=== PATIENT | female | born 1935 | race Caucasian/White ===

== ENCOUNTER 2018-01-17 20:02 | Inpatient (IN) | payer MEDICARE ==
[2018-01-17] MEDS ORDERED: oxyCODONE 5 MG Tab PO PRN (20:10)
[2018-01-17] MEDS ORDERED: Sodium Chloride 0.9% 10 ML Syringe FLUSH PRN (20:10)
[2018-01-17] MEDS ORDERED: Albuterol/Ipratropium 3.0-0.5 MG/3 ML Neb Soln NEB PRN (20:10)
[2018-01-17] MEDS ORDERED: Morphine 4 MG/ML Syringe IVPUSH PRN (20:10)
[2018-01-17] MEDS ORDERED: Ondansetron 4 MG/2 ML SDV IVPUSH PRN (20:10)
[2018-01-17] MEDS ORDERED: Sodium Chloride 0.9% 2.5 ML Syringe FLUSH PRN (20:10)
[2018-01-17 21:07] LABS: CHLORIDE,CL 79 mmol/L (98-107)
[2018-01-17 21:19] LABS: SODIUM,NA 114 mmol/L (136-145)
[2018-01-17] MEDS ORDERED: Potassium Chloride 20 MEQ Tab.ER PO SCH (21:30)
[2018-01-17] MEDS ORDERED: Potassium Chloride 10% 20 MEQ/15 ML Soln 30 ML UD Cup ONE (22:10)
--- NOTE | 2018-01-17 22:13 | PCM.HP ---
H&P History of Present Illness - General Date of Service: 01/17/18 Admit Problem/Dx: Admission Diagnosis/Problem Admission Diagnosis/Problem generalized weakness , hyponatriemia Source of Information: Family - History of Present Illness Initial Comments - Free Text/Narative: Patient is 82 y old female who presented to hospital due to generalized weakness and occasional confusion for the past week , history as per my discussion with her granddaughter. At the moment I have seen the patient she was hard of hearing and very weak and could not provide detailed history. As per granddaughter she had only one episode of diarrhea and vomiting and this was in ER at [facility] . She took her grandmother to hospital due to general weakness/ lethargy and at [facility] she was found to have sodium level of 114 mg/dl.Was seen in the hospital in [place] for a episode of eye problems and was given treated with prednisone 50 mg po daily and suppopsed to have temporal artery biopsy to rule out temporal arteritis . She has decreased vision and is almost blind . Onset of Symptoms: Reports: Gradual Duration of Symptoms: Reports: Week(s): Left Arm Pain Score (Numeric/FACES): 3 - Related Data Allergies/Adverse Reactions: Allergies Allergy/AdvReac Type Severity Reaction Status Date / Time acetaminophen Allergy Mild Itching Verified 01/17/18 21:06 methimazole [From Tapazole] Allergy Mild Swollen Verified 01/17/18 21:15 Eyes Home Medications: Home Meds Escitalopram [Lexapro] 10 mg PO DAILY 01/18/18 [History] Hydrochlorothiazide 25 mg PO DAILY 01/18/18 [History] predniSONE [Prednisone] 50 mg PO DAILY 01/18/18 [History] Social & Family History - Tobacco Use Smoking Status *Q: Current Every Day Smoker Years of Tobacco use: 50 Packs/Tins Daily: 0 Used Tobacco, but Quit: No Second Hand Smoke Exposure: No - Caffeine Use Caffeine Use: Reports: Coffee - Recreational Drug Use Recreational Drug Use: No H&P Review of Systems - Review of Systems: Review Of Systems: See Below General: Reports: Weakness, Fatigue HEENT: Reports: No Symptoms Pulmonary: Reports: No Symptoms Cardiovascular: Reports: No Symptoms Gastrointestinal: Reports: Diarrhea, Vomiting Genitourinary: Reports: No Symptoms Musculoskeletal: Reports: No Symptoms Skin: Reports: No Symptoms Neurological: Reports: Confusion Hematologic/Lymphatic: Reports: No Symptoms Immunologic: Reports: No Symptoms Exam - Exam Exam: See Below - Vital Signs Vital Signs: Last Vital Signs Temp Pulse Resp BP Pulse Ox 98 01/17/18 20:47 Weight: 108 lb 3.951 oz - Exam General: Alert, Oriented HEENT: Conjunctiva Clear, EACs Clear, EOMI Neck: Supple, Trachea Midline Lungs: Clear to Auscultation, Normal Respiratory Effort Cardiovascular: Regular Rate, Regular Rhythm, Normal S1, Normal S2 GI/Abdominal Exam: Normal Bowel Sounds, Soft, Non-Tender, No Organomegaly Extremities: Normal Inspection Skin: Warm, Dry Neurological: Cranial Nerves Intact Neuro Extensive - Mental Status: Alert, Oriented x3 - Patient Data Lab Results Last 24 hrs: Laboratory Results - last 24 hr 01/17/18 01/17/18 01/17/18 Range/Units 20:30 20:30 21:00 WBC 19.05 H (4.0-11.0) K/uL RBC 4.79 (4.30-5.90) M/uL Hgb 13.2 (12.0-16.0) g/dL Hct 36.5 (36.0-46.0) % MCV 76.2 L (80.0-98.0) fL MCH 27.6 (27.0-32.0) pg MCHC 36.2 (31.0-37.0) g/dL RDW Std Deviation 38.8 (28.0-62.0) fl RDW Coeff of Rhianna 14 (11.0-15.0) % Plt Count 412 H (150-400) K/uL MPV 10.40 (7.40-12.00) fL Nucleated RBC % 0.0 /100WBC Nucleated RBCs # 0 K/uL Sodium 114 L* (136-145) mmol/L Potassium 2.8 L (3.5-5.1) mmol/L Chloride 79 L (98-107) mmol/L Carbon Dioxide 30.0 (21.0-32.0) mmol/L BUN 16 (7.0-18.0) mg/dL Creatinine 0.7 (0.6-1.0) mg/dL Est Cr Clr Drug Dosing 47.56 mL/min Estimated GFR (MDRD) > 60.0 ml/min Glucose 118 H (74-106) mg/dL Calcium 8.3 L (8.5-10.1) mg/dL Magnesium 1.7 (1.5-2.0) mg/dL Total Bilirubin 0.5 (0.2-1.0) mg/dL AST 15 (15-37) IU/L ALT 14 (14-63) IU/L Alkaline Phosphatase 100 (46-116) U/L Total Protein 6.0 L (6.4-8.2) g/dL Albumin 3.2 L (3.4-5.0) g/dL Globulin 2.8 (2.0-3.5) g/dL Albumin/Globulin Ratio 1.1 L (1.3-2.8) Result Diagrams: 01/18/18 07:08 01/18/18 07:08 EKG INTERPRETATION Rhythm: NSR (pvc) - Problem List (1) Hyponatremia SNOMED Code(s): 17317463 ICD Code: E87.1 - HYPO-OSMOLALITY AND HYPONATREMIA Status: Acute Current Visit: Yes (2) Diarrhea SNOMED Code(s): 69742439 ICD Code: R19.7 - DIARRHEA, UNSPECIFIED Status: Acute Current Visit: Yes (3) Vision decreased SNOMED Code(s): 681635817 ICD Code: H54.7 - UNSPECIFIED VISUAL LOSS Status: Acute Current Visit: Yes Problem List Initiated/Reviewed/Updated: Yes Orders Last 24hrs: Active Orders 24 hr Category Date Time Status Patient Status [ADT] Routine ADT 01/17/18 20:10 Active Oxygen Therapy [RC] PRN Care 01/17/18 20:10 Active Pulse Oximetry [RC] CONTINUOUS Care 01/17/18 20:13 Active RT Aerosol Therapy [RC] ASDIRECTED Care 01/17/18 20:17 Active Up ad Lisbeth [RC] ASDIRECTED Care 01/17/18 20:10 Active VTE/DVT Education [RC] PER UNIT ROUTINE Care 01/17/18 20:10 Active Vital Signs [RC] Q1HR Care 01/17/18 20:10 Active PT Evaluation and Treatment [CONS] Routine Cons 01/17/18 20:10 Active Regular Diet [DIET] Diet 01/17/18 Breakfast Active CBC WITH AUTO DIFF [HEME] AM Lab 01/18/18 05:11 Ordered CBC WITH AUTO DIFF [HEME] AM Lab 01/19/18 05:11 Ordered CBC WITH AUTO DIFF [HEME] AM Lab 01/20/18 05:11 Ordered CBC WITH AUTO DIFF [HEME] AM Lab 01/21/18 05:11 Ordered CBC WITH AUTO DIFF [HEME] AM Lab 01/22/18 05:11 Ordered CDIFF TOX A+B [OP] Routine Lab 01/17/18 20:17 Ordered COMPREHENSIVE METABOLIC PN,CMP [CHEM] AM Lab 01/18/18 05:11 Ordered COMPREHENSIVE METABOLIC PN,CMP [CHEM] AM Lab 01/19/18 05:11 Ordered COMPREHENSIVE METABOLIC PN,CMP [CHEM] AM Lab 01/20/18 05:11 Ordered COMPREHENSIVE METABOLIC PN,CMP [CHEM] AM Lab 01/21/18 05:11 Ordered COMPREHENSIVE METABOLIC PN,CMP [CHEM] AM Lab 01/22/18 05:11 Ordered CULTURE BLOOD [BC] Stat Lab 01/17/18 20:30 Received CULTURE BLOOD [BC] Stat Lab 01/17/18 20:40 Received CULTURE STOOL + CAMPY+SHIGATOX [RM] Routine Lab 01/17/18 20:17 Ordered MAGNESIUM [CHEM] AM Lab 01/18/18 05:11 Ordered MAGNESIUM [CHEM] AM Lab 01/19/18 05:11 Ordered MAGNESIUM [CHEM] AM Lab 01/20/18 05:11 Ordered WBC, STOOL [OP] Routine Lab 01/17/18 20:17 Ordered Albuterol/Ipratropium [DuoNeb 3.0-0.5 MG/3 ML] Med 01/17/18 20:10 Active 3 ml NEB Q4HRRT PRN Enoxaparin [Lovenox] Med 01/17/18 20:15 Active 40 mg SUBCUT Q24H Morphine Med 01/17/18 20:10 Active 2 mg IVPUSH Q2H PRN Ondansetron [Zofran] Med 01/17/18 20:10 Active 4 mg IVPUSH Q4H PRN Potassium Chloride [Klor-Con M20] Med 01/17/18 21:30 Active 40 meq PO DAILY Potassium Chloride [Klor-Con M20] Med 01/18/18 02:00 Once 40 meq PO ONETIME ONE Sodium Chloride 0.9% [Saline Flush] Med 01/17/18 20:10 Active 10 ml FLUSH ASDIRECTED PRN Sodium Chloride 0.9% [Saline Flush] Med 01/17/18 20:10 Active 2.5 ml FLUSH ASDIRECTED PRN oxyCODONE Med 01/17/18 20:10 Active 5 mg PO Q4H PRN Blood Culture x2 Reflex Set [OM.PC] Stat Oth 01/17/18 20:10 Ordered Peripheral IV Insertion Adult [OM.PC] Routine Oth 01/17/18 20:10 Ordered Saline Lock Insert [OM.PC] Routine Oth 01/17/18 20:10 Ordered Resuscitation Status Routine Resus Stat 01/17/18 20:10 Ordered Medication Orders Albuterol/Ipratropium (Duoneb 3.0-0.5 Mg/3 Ml) 3 ml NEB Q4HRRT PRN PRN Reason: Shortness Of Breath/wheezing Enoxaparin Sodium (Lovenox) 40 mg SUBCUT Q24H CORNELIO Morphine Sulfate (Morphine) 2 mg IVPUSH Q2H PRN PRN Reason: Pain (severe 7-10) Stop: 01/18/18 20:14 Ondansetron HCl (Zofran) 4 mg IVPUSH Q4H PRN PRN Reason: Nausea Oxycodone HCl (Oxycodone) 5 mg PO Q4H PRN PRN Reason: Pain (moderate 4-6) Potassium Chloride (Klor-Con M20) 40 meq PO DAILY CORNELIO Potassium Chloride (Klor-Con M20) 40 meq PO ONETIME ONE Stop: 01/18/18 02:01 Sodium Chloride (Saline Flush) 10 ml FLUSH ASDIRECTED PRN PRN Reason: Keep Vein Open Sodium Chloride (Saline Flush) 2.5 ml FLUSH ASDIRECTED PRN PRN Reason: Keep Vein Open Cxr - unable to retrive CXR , questinable pneumonia- will repeat CXR Assessment and plan 1) severe Hyponatriemia with lethargy , occasional confusion 2)diarrhea 3) leucocytosis 4)vomiting 5) generalized weakness 6)hypokaliemia at 2.8 Plan Will admit patient to ICU will put patient on fluid restriction at 1000 cc/day , IV fluids with NS supplement K with Kcl 40 Ayala q 6 h , 3 dosages Start patient on levaquin 750 mg ivpb , metronidazole 500 mg iv qid , f/up stool culture ,DVt prof - heparin sq stool for c diff , stool for wbc, peptobismol. E icu consult. HTN: stable -continue home medications eye problems : continue prednisone 50 mg po daily Dvt prof : heparin sq
[2018-01-17] MEDS: Enoxaparin 40 MG/0.4 ML Syringe SUBCUT SCH (22:40)
[2018-01-17] MEDS ORDERED: KCL IV SCH (22:45)
[2018-01-17] MEDS ORDERED: SODIUM CHLORIDE 0.9% IV SCH (22:45)
[2018-01-17] MEDS ORDERED: cefTRIAXone 1 GM in Premix Bag 1 BAG IV SCH (23:15)
[2018-01-17] MEDS ORDERED: Azithromycin 500 MG in Sodium Chloride 0.9% 250 ML IV SCH (23:15)
[2018-01-18] MEDS ORDERED: Potassium Chloride 20 MEQ Tab.ER PO ONE (02:00)
[2018-01-18 02:35] LABS: CHLORIDE,CL 86 mmol/L (98-107)
[2018-01-18 02:39] LABS: SODIUM,NA 118 mmol/L (136-145)
[2018-01-18] MEDS ORDERED: Sodium Chloride 0.9% 1,000 ML IV SCH (03:30)
[2018-01-18 07:44] LABS: CHLORIDE,CL 88 mmol/L (98-107)
[2018-01-18 07:57] LABS: SODIUM,NA 119 mmol/L (136-145)
--- NOTE | 2018-01-18 08:13 | PCM.PN ---
<Baluch,Bob - Last Filed: 01/18/18 08:08> - General Info Date of Service: 01/18/18 Admission Dx/Problem (Free Text): Admission Diagnosis/Problem Admission Diagnosis/Problem Diarrhea Subjective Update: Patient states her only complaint is "high blood pressure." She is aware of shere she is and her surroundings. SHe denies nausea, vomiting, diarrhea, headache. 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 No other complaints. - Review of Systems General: Reports: No Symptoms HEENT: Reports: No Symptoms Pulmonary: Reports: No Symptoms Cardiovascular: Reports: No Symptoms Gastrointestinal: Reports: No Symptoms Genitourinary: Reports: No Symptoms Musculoskeletal: Reports: No Symptoms Skin: Reports: No Symptoms Neurological: Reports: No Symptoms Psychiatric: Reports: No Symptoms - Patient Data Vitals - Most Recent: Last Vital Signs Temp 36.3 C 01/18/18 04:00 Pulse Resp 12 01/18/18 07:00 BP 159/57 H 01/18/18 07:00 Pulse Ox 96 01/18/18 07:00 Weight - Most Recent: 108 lb 3.951 oz I&O - Last 24 Hours: Intake & Output 01/17/18 01/18/18 01/18/18 22:59 06:59 14:59 Intake Total 888 Output Total 1200 Balance -312 Lab Results Last 24 Hours: Laboratory Results - last 24 hr 01/17/18 01/17/18 01/17/18 Range/Units 20:30 20:30 21:00 WBC 19.05 H (4.0-11.0) K/uL RBC 4.79 (4.30-5.90) M/uL Hgb 13.2 (12.0-16.0) g/dL Hct 36.5 (36.0-46.0) % MCV 76.2 L (80.0-98.0) fL MCH 27.6 (27.0-32.0) pg MCHC 36.2 (31.0-37.0) g/dL RDW Std Deviation 38.8 (28.0-62.0) fl RDW Coeff of Rhianna 14 (11.0-15.0) % Plt Count 412 H (150-400) K/uL MPV 10.40 (7.40-12.00) fL Neut % (Auto) (48.0-80.0) % Lymph % (Auto) (16.0-40.0) % [place] % (Auto) (0.0-15.0) % Eos % (Auto) (0.0-7.0) % Baso % (Auto) (0.0-1.5) % Neut # (Auto) (1.4-5.7) K/uL Lymph # (Auto) (0.6-2.4) K/uL [place] # (Auto) (0.0-0.8) K/uL Eos # (Auto) (0.0-0.7) K/uL Baso # (Auto) (0.0-0.1) K/uL Nucleated RBC % 0.0 /100WBC Nucleated RBCs # 0 K/uL Lactate (0.20-2.00) mmol/L Sodium 114 L* (136-145) mmol/L Potassium 2.8 L (3.5-5.1) mmol/L Chloride 79 L (98-107) mmol/L Carbon Dioxide 30.0 (21.0-32.0) mmol/L BUN 16 (7.0-18.0) mg/dL Creatinine 0.7 (0.6-1.0) mg/dL Est Cr Clr Drug Dosing 47.56 mL/min Estimated GFR (MDRD) > 60.0 ml/min Glucose 118 H (74-106) mg/dL Calcium 8.3 L (8.5-10.1) mg/dL Magnesium 1.7 (1.5-2.0) mg/dL Total Bilirubin 0.5 (0.2-1.0) mg/dL AST 15 (15-37) IU/L ALT 14 (14-63) IU/L Alkaline Phosphatase 100 (46-116) U/L Total Protein 6.0 L (6.4-8.2) g/dL Albumin 3.2 L (3.4-5.0) g/dL Globulin 2.8 (2.0-3.5) g/dL Albumin/Globulin Ratio 1.1 L (1.3-2.8) Urine Color Urine Appearance Urine pH (5.0-8.0) Ur Specific [place] (1.001-1.035) Urine Protein (NEGATIVE) mg/dL Urine Glucose (UA) (NEGATIVE) mg/dL Urine Ketones (NEGATIVE) mg/dL Urine Occult Blood (NEGATIVE) Urine Nitrite (NEGATIVE) Urine Bilirubin (NEGATIVE) Urine Urobilinogen (<2.0) EU/dL Ur Leukocyte Esterase (NEGATIVE) Urine RBC (0-2/HPF) Urine WBC (0-5/HPF) Ur Epithelial Cells (NONE-FEW) Urine Bacteria (NEGATIVE) Ur Random Sodium (40.0-220.0) mmol/L 01/17/18 01/17/18 01/18/18 Range/Units 22:47 23:40 02:00 WBC (4.0-11.0) K/uL RBC (4.30-5.90) M/uL Hgb (12.0-16.0) g/dL Hct (36.0-46.0) % MCV (80.0-98.0) fL MCH (27.0-32.0) pg MCHC (31.0-37.0) g/dL RDW Std Deviation (28.0-62.0) fl RDW Coeff of Rhianna (11.0-15.0) % Plt Count (150-400) K/uL MPV (7.40-12.00) fL Neut % (Auto) (48.0-80.0) % Lymph % (Auto) (16.0-40.0) % [place] % (Auto) (0.0-15.0) % Eos % (Auto) (0.0-7.0) % Baso % (Auto) (0.0-1.5) % Neut # (Auto) (1.4-5.7) K/uL Lymph # (Auto) (0.6-2.4) K/uL [place] # (Auto) (0.0-0.8) K/uL Eos # (Auto) (0.0-0.7) K/uL Baso # (Auto) (0.0-0.1) K/uL Nucleated RBC % /100WBC Nucleated RBCs # K/uL Lactate (0.20-2.00) mmol/L Sodium 118 L* (136-145) mmol/L Potassium 4.3 (3.5-5.1) mmol/L Chloride 86 L (98-107) mmol/L Carbon Dioxide 28.0 (21.0-32.0) mmol/L BUN 12 (7.0-18.0) mg/dL Creatinine 0.6 (0.6-1.0) mg/dL Est Cr Clr Drug Dosing 55.49 mL/min Estimated GFR (MDRD) > 60.0 ml/min Glucose 92 (74-106) mg/dL Calcium 8.0 L (8.5-10.1) mg/dL Magnesium (1.5-2.0) mg/dL Total Bilirubin (0.2-1.0) mg/dL AST (15-37) IU/L ALT (14-63) IU/L Alkaline Phosphatase (46-116) U/L Total Protein (6.4-8.2) g/dL Albumin (3.4-5.0) g/dL Globulin (2.0-3.5) g/dL Albumin/Globulin Ratio (1.3-2.8) Urine Color Urine Appearance Urine pH (5.0-8.0) Ur Specific [place] (1.001-1.035) Urine Protein (NEGATIVE) mg/dL Urine Glucose (UA) (NEGATIVE) mg/dL Urine Ketones (NEGATIVE) mg/dL Urine Occult Blood (NEGATIVE) Urine Nitrite (NEGATIVE) Urine Bilirubin (NEGATIVE) Urine Urobilinogen (<2.0) EU/dL Ur Leukocyte Esterase (NEGATIVE) Urine RBC (0-2/HPF) Urine WBC (0-5/HPF) Ur Epithelial Cells (NONE-FEW) Urine Bacteria (NEGATIVE) Ur Random Sodium 62.0 (40.0-220.0) mmol/L 01/18/18 01/18/18 01/18/18 Range/Units 02:00 07:08 07:08 WBC 13.55 H (4.0-11.0) K/uL RBC 4.73 (4.30-5.90) M/uL Hgb 13.0 (12.0-16.0) g/dL Hct 36.3 (36.0-46.0) % MCV 76.7 L (80.0-98.0) fL MCH 27.5 (27.0-32.0) pg MCHC 35.8 (31.0-37.0) g/dL RDW Std Deviation 39.8 (28.0-62.0) fl RDW Coeff of Rhianna 14 (11.0-15.0) % Plt Count 393 (150-400) K/uL MPV 10.00 (7.40-12.00) fL Neut % (Auto) 78.0 (48.0-80.0) % Lymph % (Auto) 13.1 L (16.0-40.0) % [place] % (Auto) 8.5 (0.0-15.0) % Eos % (Auto) 0.3 (0.0-7.0) % Baso % (Auto) 0.1 (0.0-1.5) % Neut # (Auto) 10.6 H (1.4-5.7) K/uL Lymph # (Auto) 1.8 (0.6-2.4) K/uL [place] # (Auto) 1.2 H (0.0-0.8) K/uL Eos # (Auto) 0.0 (0.0-0.7) K/uL Baso # (Auto) 0.0 (0.0-0.1) K/uL Nucleated RBC % 0.0 /100WBC Nucleated RBCs # 0 K/uL Lactate (0.20-2.00) mmol/L Sodium 119 L* (136-145) mmol/L Potassium 4.1 (3.5-5.1) mmol/L Chloride 88 L (98-107) mmol/L Carbon Dioxide 27.6 (21.0-32.0) mmol/L BUN 11 (7.0-18.0) mg/dL Creatinine 0.6 (0.6-1.0) mg/dL Est Cr Clr Drug Dosing 55.49 mL/min Estimated GFR (MDRD) > 60.0 ml/min Glucose 89 (74-106) mg/dL Calcium 8.4 L (8.5-10.1) mg/dL Magnesium 1.9 (1.5-2.0) mg/dL Total Bilirubin 0.4 (0.2-1.0) mg/dL AST 14 L (15-37) IU/L ALT 12 L (14-63) IU/L Alkaline Phosphatase 85 (46-116) U/L Total Protein 5.5 L (6.4-8.2) g/dL Albumin 2.9 L (3.4-5.0) g/dL Globulin 2.6 (2.0-3.5) g/dL Albumin/Globulin Ratio 1.1 L (1.3-2.8) Urine Color Urine Appearance Urine pH (5.0-8.0) Ur Specific [place] (1.001-1.035) Urine Protein (NEGATIVE) mg/dL Urine Glucose (UA) (NEGATIVE) mg/dL Urine Ketones (NEGATIVE) mg/dL Urine Occult Blood (NEGATIVE) Urine Nitrite (NEGATIVE) Urine Bilirubin (NEGATIVE) Urine Urobilinogen (<2.0) EU/dL Ur Leukocyte Esterase (NEGATIVE) Urine RBC (0-2/HPF) Urine WBC (0-5/HPF) Ur Epithelial Cells (NONE-FEW) Urine Bacteria (NEGATIVE) Ur Random Sodium (40.0-220.0) mmol/L 01/18/18 01/18/18 Range/Units 07:08 Unknown WBC (4.0-11.0) K/uL RBC (4.30-5.90) M/uL Hgb (12.0-16.0) g/dL Hct (36.0-46.0) % MCV (80.0-98.0) fL MCH (27.0-32.0) pg MCHC (31.0-37.0) g/dL RDW Std Deviation (28.0-62.0) fl RDW Coeff of Rhianna (11.0-15.0) % Plt Count (150-400) K/uL MPV (7.40-12.00) fL Neut % (Auto) (48.0-80.0) % Lymph % (Auto) (16.0-40.0) % [place] % (Auto) (0.0-15.0) % Eos % (Auto) (0.0-7.0) % Baso % (Auto) (0.0-1.5) % Neut # (Auto) (1.4-5.7) K/uL Lymph # (Auto) (0.6-2.4) K/uL [place] # (Auto) (0.0-0.8) K/uL Eos # (Auto) (0.0-0.7) K/uL Baso # (Auto) (0.0-0.1) K/uL Nucleated RBC % /100WBC Nucleated RBCs # K/uL Lactate 0.8 (0.20-2.00) mmol/L Sodium (136-145) mmol/L Potassium (3.5-5.1) mmol/L Chloride (98-107) mmol/L Carbon Dioxide (21.0-32.0) mmol/L BUN (7.0-18.0) mg/dL Creatinine (0.6-1.0) mg/dL Est Cr Clr Drug Dosing mL/min Estimated GFR (MDRD) ml/min Glucose (74-106) mg/dL Calcium (8.5-10.1) mg/dL Magnesium (1.5-2.0) mg/dL Total Bilirubin (0.2-1.0) mg/dL AST (15-37) IU/L ALT (14-63) IU/L Alkaline Phosphatase (46-116) U/L Total Protein (6.4-8.2) g/dL Albumin (3.4-5.0) g/dL Globulin (2.0-3.5) g/dL Albumin/Globulin Ratio (1.3-2.8) Urine Color YELLOW Urine Appearance CLEAR Urine pH 7.5 (5.0-8.0) Ur Specific [place] 1.015 (1.001-1.035) Urine Protein NEGATIVE (NEGATIVE) mg/dL Urine Glucose (UA) NEGATIVE (NEGATIVE) mg/dL Urine Ketones NEGATIVE (NEGATIVE) mg/dL Urine Occult Blood NEGATIVE (NEGATIVE) Urine Nitrite NEGATIVE (NEGATIVE) Urine Bilirubin NEGATIVE (NEGATIVE) Urine Urobilinogen 0.2 (<2.0) EU/dL Ur Leukocyte Esterase TRACE (NEGATIVE) Urine RBC NONE SEEN (0-2/HPF) Urine WBC 0-1 (0-5/HPF) Ur Epithelial Cells RARE (NONE-FEW) Urine Bacteria RARE (NEGATIVE) Ur Random Sodium (40.0-220.0) mmol/L Juan Results Last 24 Hours: Microbiology 01/18/18 00:40 Clostridium difficile Toxin A & B - Final Stool / Feces Negative for C.Diff Toxin/AG 01/18/18 00:40 Stool for WBCs - Final Stool / Feces NEGATIVE FOR WBC'S 01/18/18 00:40 Campylobacter Antigen Assay - Final Stool / Feces NEGATIVE CAMPYLOBACTER AG 01/18/18 01:20 Stool Occult Blood (JUAN) - Final Stool / Feces NEGATIVE OCCULT BLOOD 01/17/18 23:40 Streptococcus pneumoniae Ag Screen - Final Urine No Growth 01/17/18 23:40 Legionella Antigen - Final Urine, Bladder No Growth Med Orders - Current: Current Medications Albuterol/Ipratropium (Duoneb 3.0-0.5 Mg/3 Ml) 3 ml NEB Q4HRRT PRN PRN Reason: Shortness Of Breath/wheezing Enoxaparin Sodium (Lovenox) 40 mg SUBCUT Q24H [facility] Last Admin: 01/17/18 22:40 Dose: 40 mg Potassium Chloride/Sodium Chloride (Normal Saline With 40 Meq Kcl) 250 mls @ 60 mls/hr IV ASDIRECTED [facility] Last Admin: 01/17/18 23:05 Dose: 60 mls/hr Azithromycin 500 mg/ Sodium (Chloride) 250 mls @ 250 mls/hr IV Q24H [facility] Last Admin: 01/18/18 00:35 Dose: 250 mls/hr Ceftriaxone Sodium/Dextrose 1 (gm/ Premix) 50 mls @ 100 mls/hr IV Q24H [facility] Last Admin: 01/17/18 23:56 Dose: 100 mls/hr Sodium Chloride (Normal Saline) 1,000 mls @ 50 mls/hr IV ASDIRECTED [facility] Last Admin: 01/18/18 03:54 Dose: 50 mls/hr Morphine Sulfate (Morphine) 2 mg IVPUSH Q2H PRN PRN Reason: Pain (severe 7-10) Stop: 01/18/18 20:14 Ondansetron HCl (Zofran) 4 mg IVPUSH Q4H PRN PRN Reason: Nausea Oxycodone HCl (Oxycodone) 5 mg PO Q4H PRN PRN Reason: Pain (moderate 4-6) Potassium Chloride (Klor-Con M20) 40 meq PO DAILY [facility] Last Admin: 01/17/18 22:41 Dose: Not Given Sodium Chloride (Saline Flush) 10 ml FLUSH ASDIRECTED PRN PRN Reason: Keep Vein Open Sodium Chloride (Saline Flush) 2.5 ml FLUSH ASDIRECTED PRN PRN Reason: Keep Vein Open Discontinued Medications Potassium Chloride (Klor-Con M20) 40 meq PO ONETIME ONE Stop: 01/18/18 02:01 Last Admin: 01/18/18 02:07 Dose: Not Given Potassium Chloride (Potassium Chloride) Confirm Administered Dose 40 meq .ROUTE .STK-MED ONE Stop: 01/17/18 22:11 Last Admin: 01/17/18 22:40 Dose: 40 meq - Exam General: No Acute Distress, Other (patient speech is delayed but she is other alert and oriented x3. She is blind with poor hearing. ) HEENT: No: Mucous Membr. Moist/[place] (mucus membranes dry ) Neck: Supple, No JVD Lungs: Clear to Auscultation, Normal Respiratory Effort Cardiovascular: Regular Rate, Regular Rhythm GI/Abdominal Exam: Normal Bowel Sounds, Soft, Non-Tender, No Distention Extremities: Normal Inspection, Normal Range of Motion, Non-Tender, No Pedal Edema Peripheral Pulses: 1+: Dorsalis Pedis (L), Dorsalis Pedis (R) Skin: Dry, Intact Neurological: No New Focal Deficit. No: Normal Speech (delayed ) Psy/Mental Status: Normal Affect, Normal Mood - Problem List Review Problem List Initiated/Reviewed/Updated: Yes - Plan Plan:: as per hospitalist <Tuan Ribera - Last Filed: 01/18/18 23:53> - General Info Subjective Update: Patient is feeling better today , sodium corrected to 119 in the morning. Continue to have watery diarrhea. - Patient Data Vitals - Most Recent: Last Vital Signs Temp 97.6 F 01/18/18 20:00 Pulse Resp 16 01/18/18 20:00 BP 170/67 H 01/18/18 20:00 Pulse Ox 95 01/18/18 20:00 I&O - Last 24 Hours: Intake & Output 01/18/18 01/18/18 01/19/18 14:59 22:59 06:59 Intake Total 1696 589 Output Total 1930 50 Balance -234 539 Lab Results Last 24 Hours: Laboratory Results - last 24 hr 01/17/18 01/18/18 01/18/18 Range/Units 23:40 02:00 02:00 WBC (4.0-11.0) K/uL RBC (4.30-5.90) M/uL Hgb (12.0-16.0) g/dL Hct (36.0-46.0) % MCV (80.0-98.0) fL MCH (27.0-32.0) pg MCHC (31.0-37.0) g/dL RDW Std Deviation (28.0-62.0) fl RDW Coeff of Rhianna (11.0-15.0) % Plt Count (150-400) K/uL MPV (7.40-12.00) fL Neut % (Auto) (48.0-80.0) % Lymph % (Auto) (16.0-40.0) % [place] % (Auto) (0.0-15.0) % Eos % (Auto) (0.0-7.0) % Baso % (Auto) (0.0-1.5) % Neut # (Auto) (1.4-5.7) K/uL Lymph # (Auto) (0.6-2.4) K/uL [place] # (Auto) (0.0-0.8) K/uL Eos # (Auto) (0.0-0.7) K/uL Baso # (Auto) (0.0-0.1) K/uL Nucleated RBC % /100WBC Nucleated RBCs # K/uL Lactate (0.20-2.00) mmol/L Sodium 118 L* (136-145) mmol/L Potassium 4.3 (3.5-5.1) mmol/L Chloride 86 L (98-107) mmol/L Carbon Dioxide 28.0 (21.0-32.0) mmol/L BUN 12 (7.0-18.0) mg/dL Creatinine 0.6 (0.6-1.0) mg/dL Est Cr Clr Drug Dosing 55.49 mL/min Estimated GFR (MDRD) > 60.0 ml/min Glucose 92 (74-106) mg/dL Calcium 8.0 L (8.5-10.1) mg/dL Magnesium (1.5-2.0) mg/dL Total Bilirubin (0.2-1.0) mg/dL AST (15-37) IU/L ALT (14-63) IU/L Alkaline Phosphatase (46-116) U/L Total Protein (6.4-8.2) g/dL Albumin (3.4-5.0) g/dL Globulin (2.0-3.5) g/dL Albumin/Globulin Ratio (1.3-2.8) Urine Color Urine Appearance Urine pH (5.0-8.0) Ur Specific [place] (1.001-1.035) Urine Protein (NEGATIVE) mg/dL Urine Glucose (UA) (NEGATIVE) mg/dL Urine Ketones (NEGATIVE) mg/dL Urine Occult Blood (NEGATIVE) Urine Nitrite (NEGATIVE) Urine Bilirubin (NEGATIVE) Urine Urobilinogen (<2.0) EU/dL Ur Leukocyte Esterase (NEGATIVE) Urine RBC (0-2/HPF) Urine WBC (0-5/HPF) Ur Epithelial Cells (NONE-FEW) Urine Bacteria (NEGATIVE) Ur Random Sodium 62.0 (40.0-220.0) mmol/L 01/18/18 01/18/18 01/18/18 Range/Units 07:08 07:08 07:08 WBC 13.55 H (4.0-11.0) K/uL RBC 4.73 (4.30-5.90) M/uL Hgb 13.0 (12.0-16.0) g/dL Hct 36.3 (36.0-46.0) % MCV 76.7 L (80.0-98.0) fL MCH 27.5 (27.0-32.0) pg MCHC 35.8 (31.0-37.0) g/dL RDW Std Deviation 39.8 (28.0-62.0) fl RDW Coeff of Rhianna 14 (11.0-15.0) % Plt Count 393 (150-400) K/uL MPV 10.00 (7.40-12.00) fL Neut % (Auto) 78.0 (48.0-80.0) % Lymph % (Auto) 13.1 L (16.0-40.0) % [place] % (Auto) 8.5 (0.0-15.0) % Eos % (Auto) 0.3 (0.0-7.0) % Baso % (Auto) 0.1 (0.0-1.5) % Neut # (Auto) 10.6 H (1.4-5.7) K/uL Lymph # (Auto) 1.8 (0.6-2.4) K/uL [place] # (Auto) 1.2 H (0.0-0.8) K/uL Eos # (Auto) 0.0 (0.0-0.7) K/uL Baso # (Auto) 0.0 (0.0-0.1) K/uL Nucleated RBC % 0.0 /100WBC Nucleated RBCs # 0 K/uL Lactate 0.8 (0.20-2.00) mmol/L Sodium 119 L* (136-145) mmol/L Potassium 4.1 (3.5-5.1) mmol/L Chloride 88 L (98-107) mmol/L Carbon Dioxide 27.6 (21.0-32.0) mmol/L BUN 11 (7.0-18.0) mg/dL Creatinine 0.6 (0.6-1.0) mg/dL Est Cr Clr Drug Dosing 55.49 mL/min Estimated GFR (MDRD) > 60.0 ml/min Glucose 89 (74-106) mg/dL Calcium 8.4 L (8.5-10.1) mg/dL Magnesium 1.9 (1.5-2.0) mg/dL Total Bilirubin 0.4 (0.2-1.0) mg/dL AST 14 L (15-37) IU/L ALT 12 L (14-63) IU/L Alkaline Phosphatase 85 (46-116) U/L Total Protein 5.5 L (6.4-8.2) g/dL Albumin 2.9 L (3.4-5.0) g/dL Globulin 2.6 (2.0-3.5) g/dL Albumin/Globulin Ratio 1.1 L (1.3-2.8) Urine Color Urine Appearance Urine pH (5.0-8.0) Ur Specific [place] (1.001-1.035) Urine Protein (NEGATIVE) mg/dL Urine Glucose (UA) (NEGATIVE) mg/dL Urine Ketones (NEGATIVE) mg/dL Urine Occult Blood (NEGATIVE) Urine Nitrite (NEGATIVE) Urine Bilirubin (NEGATIVE) Urine Urobilinogen (<2.0) EU/dL Ur Leukocyte Esterase (NEGATIVE) Urine RBC (0-2/HPF) Urine WBC (0-5/HPF) Ur Epithelial Cells (NONE-FEW) Urine Bacteria (NEGATIVE) Ur Random Sodium (40.0-220.0) mmol/L 01/18/18 01/18/18 01/18/18 Range/Units 14:30 20:25 Unknown WBC (4.0-11.0) K/uL RBC (4.30-5.90) M/uL Hgb (12.0-16.0) g/dL Hct (36.0-46.0) % MCV (80.0-98.0) fL MCH (27.0-32.0) pg MCHC (31.0-37.0) g/dL RDW Std Deviation (28.0-62.0) fl RDW Coeff of Rhianna (11.0-15.0) % Plt Count (150-400) K/uL MPV (7.40-12.00) fL Neut % (Auto) (48.0-80.0) % Lymph % (Auto) (16.0-40.0) % [place] % (Auto) (0.0-15.0) % Eos % (Auto) (0.0-7.0) % Baso % (Auto) (0.0-1.5) % Neut # (Auto) (1.4-5.7) K/uL Lymph # (Auto) (0.6-2.4) K/uL [place] # (Auto) (0.0-0.8) K/uL Eos # (Auto) (0.0-0.7) K/uL Baso # (Auto) (0.0-0.1) K/uL Nucleated RBC % /100WBC Nucleated RBCs # K/uL Lactate (0.20-2.00) mmol/L Sodium 122 L 124 L (136-145) mmol/L Potassium 4.5 4.1 (3.5-5.1) mmol/L Chloride 91 L 93 L (98-107) mmol/L Carbon Dioxide 29.1 30.2 (21.0-32.0) mmol/L BUN 11 9 (7.0-18.0) mg/dL Creatinine 0.7 0.6 (0.6-1.0) mg/dL Est Cr Clr Drug Dosing 47.56 55.49 mL/min Estimated GFR (MDRD) > 60.0 > 60.0 ml/min Glucose 126 H 98 (74-106) mg/dL Calcium 8.2 L 8.1 L (8.5-10.1) mg/dL Magnesium (1.5-2.0) mg/dL Total Bilirubin (0.2-1.0) mg/dL AST (15-37) IU/L ALT (14-63) IU/L Alkaline Phosphatase (46-116) U/L Total Protein (6.4-8.2) g/dL Albumin (3.4-5.0) g/dL Globulin (2.0-3.5) g/dL Albumin/Globulin Ratio (1.3-2.8) Urine Color YELLOW Urine Appearance CLEAR Urine pH 7.5 (5.0-8.0) Ur Specific [place] 1.015 (1.001-1.035) Urine Protein NEGATIVE (NEGATIVE) mg/dL Urine Glucose (UA) NEGATIVE (NEGATIVE) mg/dL Urine Ketones NEGATIVE (NEGATIVE) mg/dL Urine Occult Blood NEGATIVE (NEGATIVE) Urine Nitrite NEGATIVE (NEGATIVE) Urine Bilirubin NEGATIVE (NEGATIVE) Urine Urobilinogen 0.2 (<2.0) EU/dL Ur Leukocyte Esterase TRACE (NEGATIVE) Urine RBC NONE SEEN (0-2/HPF) Urine WBC 0-1 (0-5/HPF) Ur Epithelial Cells RARE (NONE-FEW) Urine Bacteria RARE (NEGATIVE) Ur Random Sodium (40.0-220.0) mmol/L Juan Results Last 24 Hours: Microbiology 01/17/18 20:40 Aerobic Blood Culture - Preliminary Blood - Venous - Lab Draw NO GROWTH AFTER 1 DAY Anaerobic Blood Culture - Preliminary NO GROWTH AFTER 1 DAY 01/17/18 20:30 Aerobic Blood Culture - Preliminary Blood - Venous NO GROWTH AFTER 1 DAY Anaerobic Blood Culture - Preliminary NO GROWTH AFTER 1 DAY 01/18/18 00:40 Campylobacter Antigen Assay - Final Stool / Feces NEGATIVE CAMPYLOBACTER AG - Final NEGATIVE FOR SHIGA TOXIN 1 - Final NEGATIVE FOR SHIGA TOXIN 2 01/18/18 00:40 Clostridium difficile Toxin A & B - Final Stool / Feces Negative for C.Diff Toxin/AG 01/18/18 00:40 Stool for WBCs - Final Stool / Feces NEGATIVE FOR WBC'S 01/18/18 01:20 Stool Occult Blood (JUAN) - Final Stool / Feces NEGATIVE OCCULT BLOOD 01/17/18 23:40 Streptococcus pneumoniae Ag Screen - Final Urine No Growth 01/17/18 23:40 Legionella Antigen - Final Urine, Bladder No Growth Med Orders - Current: Current Medications Albuterol/Ipratropium (Duoneb 3.0-0.5 Mg/3 Ml) 3 ml NEB Q4HRRT PRN PRN Reason: Shortness Of Breath/wheezing Bismuth Subsalicylate (Pepto Bismol) 30 ml PO Q1H PRN PRN Reason: Diarrhea Last Admin: 01/18/18 10:12 Dose: 30 ml Enoxaparin Sodium (Lovenox) 40 mg SUBCUT Q24H [facility] Last Admin: 01/18/18 21:17 Dose: 40 mg Potassium Chloride/Sodium Chloride (Normal Saline With 40 Meq Kcl) 250 mls @ 60 mls/hr IV ASDIRECTED [facility] Last Admin: 01/17/18 23:05 Dose: 60 mls/hr Sodium Chloride (Normal Saline) 1,000 mls @ 50 mls/hr IV ASDIRECTED [facility] Last Admin: 01/18/18 03:54 Dose: 50 mls/hr Metronidazole 500 mg/ Premix 100 mls @ 100 mls/hr IV QID [facility] Last Admin: 01/18/18 17:14 Dose: 100 mls/hr Sodium Chloride (Normal Saline) 1,000 mls @ 100 mls/hr IV ASDIRECTED [facility] Last Admin: 01/18/18 16:22 Dose: 100 mls/hr Levofloxacin/Dextrose 750 mg/ (Premix) 150 mls @ 100 mls/hr IV Q24H [facility] Last Admin: 01/18/18 21:18 Dose: 100 mls/hr Ondansetron HCl (Zofran) 4 mg IVPUSH Q4H PRN PRN Reason: Nausea Oxycodone HCl (Oxycodone) 5 mg PO Q4H PRN PRN Reason: Pain (moderate 4-6) Potassium Chloride (Potassium Chloride) 40 meq PO DAILY [facility] Last Admin: 01/18/18 08:32 Dose: 40 meq Prednisone (Prednisone) 50 mg PO DAILY [facility] Sodium Chloride (Saline Flush) 10 ml FLUSH ASDIRECTED PRN PRN Reason: Keep Vein Open Sodium Chloride (Saline Flush) 2.5 ml FLUSH ASDIRECTED PRN PRN Reason: Keep Vein Open Discontinued Medications Azithromycin 500 mg/ Sodium (Chloride) 250 mls @ 250 mls/hr IV Q24H [facility] Last Admin: 01/18/18 00:35 Dose: 250 mls/hr Ceftriaxone Sodium/Dextrose 1 (gm/ Premix) 50 mls @ 100 mls/hr IV Q24H [facility] Last Admin: 01/17/18 23:56 Dose: 100 mls/hr Ciprofloxacin/Dextrose 400 mg/ (Premix) 200 mls @ 200 mls/hr IV Q12H [facility] Last Admin: 01/18/18 10:14 Dose: 200 mls/hr Morphine Sulfate (Morphine) 2 mg IVPUSH Q2H PRN PRN Reason: Pain (severe 7-10) Stop: 01/18/18 20:14 Potassium Chloride (Klor-Con M20) 40 meq PO DAILY [facility] Last Admin: 01/17/18 22:41 Dose: Not Given Potassium Chloride (Klor-Con M20) 40 meq PO ONETIME ONE Stop: 01/18/18 02:01 Last Admin: 01/18/18 02:07 Dose: Not Given Potassium Chloride (Potassium Chloride) Confirm Administered Dose 40 meq .ROUTE .STK-MED ONE Stop: 01/17/18 22:11 Last Admin: 01/17/18 22:40 Dose: 40 meq - Problem List & Annotations (1) Hyponatremia SNOMED Code(s): 67899667 Code(s): E87.1 - HYPO-OSMOLALITY AND HYPONATREMIA Status: Acute Current Visit: Yes (2) Diarrhea SNOMED Code(s): 33980699 Code(s): R19.7 - DIARRHEA, UNSPECIFIED Status: Acute Current Visit: Yes (3) Vision decreased SNOMED Code(s): 178319031 Code(s): H54.7 - UNSPECIFIED VISUAL LOSS Status: Acute Current Visit: Yes - Problem List Review Problem List Initiated/Reviewed/Updated: Yes - My Orders Last 24 Hours: My Active Orders 01/18/18 URINALYSIS W/MICROSCOPIC [UA W/MICROSCOPIC] [URIN] Routine 01/18/18 00:40 CULTURE STOOL + CAMPY+SHIGATOX [RM] Routine 01/18/18 01:20 Occult Blood Diagnostic GI [OCCULT BLOOD DIAGNOSTIC] [OP] Routine 01/18/18 03:30 Sodium Chloride 0.9% [Normal Saline] 1,000 ml IV ASDIRECTED 01/18/18 09:00 Potassium Chloride 40 meq PO DAILY 01/18/18 09:50 Bismuth Subsalicylate [Pepto Bismol] 30 ml PO Q1H PRN 01/18/18 10:00 Sodium Chloride 0.9% [Normal Saline] 1,000 ml IV ASDIRECTED 01/18/18 11:48 Transfer Patient (Change bed) [ADT] Routine 01/18/18 11:49 Precautions [COMM] Routine 01/18/18 12:00 metroNIDAZOLE/Normal Saline [Flagyl 500 MG in NS 100 ML] 500 mg Premix Bag 1 bag IV QID 01/18/18 21:00 Levofloxacin/Dextrose 5%-Water [Levaquin in D5W 750 MG/150 ML] 750 mg Premix Bag 1 bag IV Q24H 01/19/18 05:11 CBC WITH AUTO DIFF [HEME] AM COMPREHENSIVE METABOLIC PN,CMP [CHEM] AM MAGNESIUM [CHEM] AM 01/19/18 09:00 predniSONE 50 mg PO DAILY 01/20/18 05:11 CBC WITH AUTO DIFF [HEME] AM COMPREHENSIVE METABOLIC PN,CMP [CHEM] AM MAGNESIUM [CHEM] AM 01/21/18 05:11 CBC WITH AUTO DIFF [HEME] AM COMPREHENSIVE METABOLIC PN,CMP [CHEM] AM 01/22/18 05:11 CBC WITH AUTO DIFF [HEME] AM COMPREHENSIVE METABOLIC PN,CMP [CHEM] AM - Plan Plan:: CXR:nad ASSESSMENT AND PLAN 1) severe Hyponatriemia with lethargy , occasional confusion- IMPROVING ON 1000 CC WATER RESTRICTITION 2)diarrhea 3) leucocytosis 4)vomiting-RESOLVED 5) generalized weakness 6)hypokaliemia -RESOLVED Plan DOWNGRADE FROM icu will put patient on fluid restriction at 1000 cc/day , IV fluids with NS Start patient on levaquin 750 mg ivpb , metronidazole 500 mg iv qid , f/up stool culture ,DVt prof - heparin sq stool for c diff , stool for wbc, peptobismol. HTN: stable -continue home medications eye problems : continue prednisone 50 mg po daily Dvt prof :LOVENOX sq)
[2018-01-18] MEDS: Potassium Chloride 10% 20 MEQ/15 ML Soln 30 ML UD Cup PO SCH (08:32)
[2018-01-18] MEDS ORDERED: Ciprofloxacin in D5W 400 MG in Premix Bag 1 BAG IV SCH ×2 (09:30)
[2018-01-18] MEDS: Bismuth Subsalicylate 262 MG/15 ML Susp 236 ML Bottle PO PRN (10:12)
[2018-01-18] MEDS: Sodium Chloride 0.9% 1,000 ML IV SCH ×2 (10:15→16:22)
[2018-01-18] MEDS: metroNIDAZOLE/Normal Saline 500 MG in Premix Bag 1 BAG IV SCH ×2 (12:16→17:14)
--- NOTE | 2018-01-18 13:09 | CR ---
EXAMINATION: Portable chest radiograph. HISTORY: Weakness. FINDINGS: The trachea is midline. The cardiomediastinal silhouette is within normal limits. No pulmonary infilt rates, effusions or pneumothorax. Mild interstitial prominence. Osseous structures appear unremarkable. IMPRESSION: No acute cardiopulmonary process.
[2018-01-18 15:04] LABS: CHLORIDE,CL 91 mmol/L (98-107); SODIUM,NA 122 mmol/L (136-145)
[2018-01-18 20:57] LABS: CHLORIDE,CL 93 mmol/L (98-107); SODIUM,NA 124 mmol/L (136-145)
[2018-01-18] MEDS ORDERED: Levofloxacin/Dextrose 5%-Water 750 MG in Premix Bag 1 BAG IV SCH (21:00)
[2018-01-18] MEDS: Enoxaparin 40 MG/0.4 ML Syringe SUBCUT SCH (21:17)
[2018-01-19] MEDS: metroNIDAZOLE/Normal Saline 500 MG in Premix Bag 1 BAG IV SCH ×4 (00:17→17:20)
[2018-01-19] MEDS: Bismuth Subsalicylate 262 MG/15 ML Susp 236 ML Bottle PO PRN ×2 (03:15→08:25)
[2018-01-19] MEDS: Sodium Chloride 0.9% 1,000 ML IV SCH ×2 (06:10→19:26)
[2018-01-19 06:55] LABS: CHLORIDE,CL 95 mmol/L (98-107); SODIUM,NA 125 mmol/L (136-145)
[2018-01-19] MEDS: predniSONE 10 MG Tab PO SCH (08:30)
[2018-01-19] MEDS: Potassium Chloride 10% 20 MEQ/15 ML Soln 30 ML UD Cup PO SCH (08:33)
[2018-01-19] MEDS ORDERED: Loperamide 2 MG Cap PO ONE (09:12)
[2018-01-19] MEDS: amLODIPine 5 MG Tab PO SCH (11:32)
--- NOTE | 2018-01-19 17:53 | PCM.PN ---
- General Info Date of Service: 01/19/18 Admission Dx/Problem (Free Text): Admission Diagnosis/Problem Admission Diagnosis/Problem generalized weakness , hyponatriemia Subjective Update: Patient feeling better today her sodium improved to 125, she still continued to have diarrhea, stool culture and stool for C. difficile , stool for wbc were negative. Patient started on today on Imodium she was given 4 mg by mouth 1 dose and her diarrhea stopped. As per my discussion with her daughter she has history of frequent diarrhe in the past. It seems that her diarrhea is not infectious as her stool is negative for wbc - Review of Systems General: Reports: Weakness HEENT: Reports: No Symptoms Pulmonary: Reports: No Symptoms Cardiovascular: Reports: No Symptoms Gastrointestinal: Reports: Diarrhea Musculoskeletal: Reports: No Symptoms Skin: Reports: No Symptoms Neurological: Reports: No Symptoms Psychiatric: Reports: No Symptoms - Patient Data Vitals - Most Recent: Last Vital Signs Temp 97.8 F 01/19/18 16:00 Pulse Resp 14 01/19/18 16:00 BP 149/62 H 01/19/18 16:00 Pulse Ox 96 01/19/18 16:00 Weight - Most Recent: 108 lb 3.951 oz I&O - Last 24 Hours: Intake & Output 01/19/18 01/19/18 01/19/18 06:59 14:59 22:59 Intake Total 1112 1650 120 Output Total 800 2050 250 Balance 312 -400 -130 Lab Results Last 24 Hours: Laboratory Results - last 24 hr 01/17/18 01/18/18 01/19/18 Range/Units 23:40 20:25 04:40 WBC 11.71 H (4.0-11.0) K/uL RBC 4.50 (4.30-5.90) M/uL Hgb 12.4 (12.0-16.0) g/dL Hct 35.5 L (36.0-46.0) % MCV 78.9 L (80.0-98.0) fL MCH 27.6 (27.0-32.0) pg MCHC 34.9 (31.0-37.0) g/dL RDW Std Deviation 41.6 (28.0-62.0) fl RDW Coeff of Rhianna 15 (11.0-15.0) % Plt Count 381 (150-400) K/uL MPV 10.90 (7.40-12.00) fL Neut % (Auto) 75.9 (48.0-80.0) % Lymph % (Auto) 14.6 L (16.0-40.0) % [place] % (Auto) 9.1 (0.0-15.0) % Eos % (Auto) 0.3 (0.0-7.0) % Baso % (Auto) 0.1 (0.0-1.5) % Neut # (Auto) 8.9 H (1.4-5.7) K/uL Lymph # (Auto) 1.7 (0.6-2.4) K/uL [place] # (Auto) 1.1 H (0.0-0.8) K/uL Eos # (Auto) 0.0 (0.0-0.7) K/uL Baso # (Auto) 0.0 (0.0-0.1) K/uL Nucleated RBC % 0.0 /100WBC Nucleated RBCs # 0 K/uL Sodium 124 L (136-145) mmol/L Potassium 4.1 (3.5-5.1) mmol/L Chloride 93 L (98-107) mmol/L Carbon Dioxide 30.2 (21.0-32.0) mmol/L BUN 9 (7.0-18.0) mg/dL Creatinine 0.6 (0.6-1.0) mg/dL Est Cr Clr Drug Dosing 55.49 mL/min Estimated GFR (MDRD) > 60.0 ml/min Glucose 98 (74-106) mg/dL Calcium 8.1 L (8.5-10.1) mg/dL Magnesium (1.5-2.0) mg/dL Total Bilirubin (0.2-1.0) mg/dL AST (15-37) IU/L ALT (14-63) IU/L Alkaline Phosphatase (46-116) U/L Total Protein (6.4-8.2) g/dL Albumin (3.4-5.0) g/dL Globulin (2.0-3.5) g/dL Albumin/Globulin Ratio (1.3-2.8) Urine Osmolality 419 (300-900) mosm/kg 01/19/18 Range/Units 04:40 WBC (4.0-11.0) K/uL RBC (4.30-5.90) M/uL Hgb (12.0-16.0) g/dL Hct (36.0-46.0) % MCV (80.0-98.0) fL MCH (27.0-32.0) pg MCHC (31.0-37.0) g/dL RDW Std Deviation (28.0-62.0) fl RDW Coeff of Rhianna (11.0-15.0) % Plt Count (150-400) K/uL MPV (7.40-12.00) fL Neut % (Auto) (48.0-80.0) % Lymph % (Auto) (16.0-40.0) % [place] % (Auto) (0.0-15.0) % Eos % (Auto) (0.0-7.0) % Baso % (Auto) (0.0-1.5) % Neut # (Auto) (1.4-5.7) K/uL Lymph # (Auto) (0.6-2.4) K/uL [place] # (Auto) (0.0-0.8) K/uL Eos # (Auto) (0.0-0.7) K/uL Baso # (Auto) (0.0-0.1) K/uL Nucleated RBC % /100WBC Nucleated RBCs # K/uL Sodium 125 L (136-145) mmol/L Potassium 4.8 (3.5-5.1) mmol/L Chloride 95 L (98-107) mmol/L Carbon Dioxide 30.4 (21.0-32.0) mmol/L BUN 7 (7.0-18.0) mg/dL Creatinine 0.6 (0.6-1.0) mg/dL Est Cr Clr Drug Dosing 55.49 mL/min Estimated GFR (MDRD) > 60.0 ml/min Glucose 86 (74-106) mg/dL Calcium 8.1 L (8.5-10.1) mg/dL Magnesium 1.7 (1.5-2.0) mg/dL Total Bilirubin 0.3 (0.2-1.0) mg/dL AST 15 (15-37) IU/L ALT 12 L (14-63) IU/L Alkaline Phosphatase 78 (46-116) U/L Total Protein 5.1 L (6.4-8.2) g/dL Albumin 2.6 L (3.4-5.0) g/dL Globulin 2.5 (2.0-3.5) g/dL Albumin/Globulin Ratio 1.0 L (1.3-2.8) Urine Osmolality (300-900) mosm/kg Juan Results Last 24 Hours: Microbiology 01/18/18 00:40 Stool Culture - Final Stool / Feces NO SALMONELLA, SHIGELLA,OR E.COLI O157 ISOLATED Campylobacter Antigen Assay - Final NEGATIVE CAMPYLOBACTER AG - Final NEGATIVE FOR SHIGA TOXIN 1 - Final NEGATIVE FOR SHIGA TOXIN 2 01/17/18 20:40 Aerobic Blood Culture - Preliminary Blood - Venous - Lab Draw NO GROWTH AFTER 1 DAY Anaerobic Blood Culture - Preliminary NO GROWTH AFTER 1 DAY 01/17/18 20:30 Aerobic Blood Culture - Preliminary Blood - Venous NO GROWTH AFTER 1 DAY Anaerobic Blood Culture - Preliminary NO GROWTH AFTER 1 DAY Med Orders - Current: Current Medications Albuterol/Ipratropium (Duoneb 3.0-0.5 Mg/3 Ml) 3 ml NEB Q4HRRT PRN PRN Reason: Shortness Of Breath/wheezing Amlodipine Besylate (Norvasc) 10 mg PO DAILY [facility] Last Admin: 01/19/18 11:32 Dose: 10 mg Bismuth Subsalicylate (Pepto Bismol) 30 ml PO Q1H PRN PRN Reason: Diarrhea Last Admin: 01/19/18 08:25 Dose: 30 ml Enoxaparin Sodium (Lovenox) 40 mg SUBCUT Q24H [facility] Last Admin: 01/18/18 21:17 Dose: 40 mg Metronidazole 500 mg/ Premix 100 mls @ 100 mls/hr IV QID [facility] Last Admin: 01/19/18 17:20 Dose: 100 mls/hr Sodium Chloride (Normal Saline) 1,000 mls @ 100 mls/hr IV ASDIRECTED [facility] Last Admin: 01/19/18 06:10 Dose: 100 mls/hr Levofloxacin/Dextrose 750 mg/ (Premix) 150 mls @ 100 mls/hr IV Q24H [facility] Last Admin: 01/18/18 21:18 Dose: 100 mls/hr Ondansetron HCl (Zofran) 4 mg IVPUSH Q4H PRN PRN Reason: Nausea Oxycodone HCl (Oxycodone) 5 mg PO Q4H PRN PRN Reason: Pain (moderate 4-6) Potassium Chloride (Potassium Chloride) 40 meq PO DAILY [facility] Last Admin: 01/19/18 08:33 Dose: 40 meq Prednisone (Prednisone) 50 mg PO DAILY [facility] Last Admin: 01/19/18 08:30 Dose: 50 mg Sodium Chloride (Saline Flush) 10 ml FLUSH ASDIRECTED PRN PRN Reason: Keep Vein Open Sodium Chloride (Saline Flush) 2.5 ml FLUSH ASDIRECTED PRN PRN Reason: Keep Vein Open Discontinued Medications Potassium Chloride/Sodium Chloride (Normal Saline With 40 Meq Kcl) 250 mls @ 60 mls/hr IV ASDIRECTED [facility] Last Admin: 01/17/18 23:05 Dose: 60 mls/hr Azithromycin 500 mg/ Sodium (Chloride) 250 mls @ 250 mls/hr IV Q24H [facility] Last Admin: 01/18/18 00:35 Dose: 250 mls/hr Ceftriaxone Sodium/Dextrose 1 (gm/ Premix) 50 mls @ 100 mls/hr IV Q24H [facility] Last Admin: 01/17/18 23:56 Dose: 100 mls/hr Sodium Chloride (Normal Saline) 1,000 mls @ 50 mls/hr IV ASDIRECTED [facility] Last Admin: 01/18/18 03:54 Dose: 50 mls/hr Ciprofloxacin/Dextrose 400 mg/ (Premix) 200 mls @ 200 mls/hr IV Q12H [facility] Last Admin: 01/18/18 10:14 Dose: 200 mls/hr Loperamide HCl (Imodium) 4 mg PO ONETIME ONE Stop: 01/19/18 09:13 Last Admin: 01/19/18 09:18 Dose: 4 mg Morphine Sulfate (Morphine) 2 mg IVPUSH Q2H PRN PRN Reason: Pain (severe 7-10) Stop: 01/18/18 20:14 Potassium Chloride (Klor-Con M20) 40 meq PO DAILY [facility] Last Admin: 01/17/18 22:41 Dose: Not Given Potassium Chloride (Klor-Con M20) 40 meq PO ONETIME ONE Stop: 01/18/18 02:01 Last Admin: 01/18/18 02:07 Dose: Not Given Potassium Chloride (Potassium Chloride) Confirm Administered Dose 40 meq .ROUTE .STK-MED ONE Stop: 01/17/18 22:11 Last Admin: 01/17/18 22:40 Dose: 40 meq - Exam General: Alert, Oriented HEENT: EOMI. No: Scleral Icterus Neck: Supple Lungs: Clear to Auscultation, Normal Respiratory Effort Cardiovascular: Regular Rate, Regular Rhythm, No Murmurs GI/Abdominal Exam: Normal Bowel Sounds, Soft, Non-Tender, No Distention Back Exam: Normal Inspection Extremities: Normal Inspection - Problem List & Annotations (1) Hyponatremia SNOMED Code(s): 86998256 Code(s): E87.1 - HYPO-OSMOLALITY AND HYPONATREMIA Status: Acute Current Visit: Yes (2) Diarrhea SNOMED Code(s): 48970844 Code(s): R19.7 - DIARRHEA, UNSPECIFIED Status: Acute Current Visit: Yes Qualifiers: Diarrhea type: functional diarrhea Qualified Code(s): K59.1 - Functional diarrhea (3) Vision decreased SNOMED Code(s): 364732050 Code(s): H54.7 - UNSPECIFIED VISUAL LOSS Status: Acute Current Visit: Yes - Problem List Review Problem List Initiated/Reviewed/Updated: Yes - My Orders Last 24 Hours: My Active Orders 01/18/18 21:00 Levofloxacin/Dextrose 5%-Water [Levaquin in D5W 750 MG/150 ML] 750 mg Premix Bag 1 bag IV Q24H 01/19/18 09:00 amLODIPine [Norvasc] 10 mg PO DAILY predniSONE 50 mg PO DAILY 01/20/18 05:11 CBC WITH AUTO DIFF [HEME] AM COMPREHENSIVE METABOLIC PN,CMP [CHEM] AM MAGNESIUM [CHEM] AM 01/21/18 05:11 CBC WITH AUTO DIFF [HEME] AM COMPREHENSIVE METABOLIC PN,CMP [CHEM] AM 01/22/18 05:11 CBC WITH AUTO DIFF [HEME] AM COMPREHENSIVE METABOLIC PN,CMP [CHEM] AM - Plan Plan:: CXR:nad ASSESSMENT AND PLAN 1) hyponatremia- improving -will start patient on sodium chloride 1 g tablets 4 times a day, water restriction to 800 mL by mouth daily 2)diarrhea- noninfectious- stool culture and stool for WBC and stool for C. difficile negative, will discontinue Levaquin and will discontinue metronidazole , stopped today after she received imodium. Imodium could not be started previously until a possible infectious cause was ruled out. 3) leucocytosis-secondary to steroid use hypertension uncontrolled - probable a component of the uncontrolled BP is the fact she was recently started on high dose of prednisone due to the presumtion she might have temporal arteritis. Patient does not complain of headache. For uncontrolled BP she was started on Amlodipine 10 mg po daily , which brought down her BP to 145 syatolic. Lisinopril 5 mg was added for better control. Will add ESR to her Blood work, 4)vomiting-RESOLVED 5) generalized weakness -improving 6)hypokaliemia -RESOLVED Plan fluid restriction at 1000 cc/day , IV fluids with NS start amlodipine 10 mg po daily , lisinopril 5 mg po daily , f/up BP eye problems : continue prednisone 50 mg po daily Dvt prof :LOVENOX sq)
[2018-01-19] MEDS: Enoxaparin 40 MG/0.4 ML Syringe SUBCUT SCH (21:01)
[2018-01-19] MEDS: Lisinopril 5 MG Tab PO SCH (21:01)
[2018-01-20] MEDS: Sodium Chloride 1 GM Tab PO SCH ×5 (00:49→23:25)
[2018-01-20] MEDS ORDERED: hydrALAZINE 25 MG Tab PO ONE (03:51)
[2018-01-20 05:51] LABS: CHLORIDE,CL 99 mmol/L (98-107); SODIUM,NA 131 mmol/L (136-145)
[2018-01-20] MEDS: amLODIPine 5 MG Tab PO SCH (08:00)
[2018-01-20] MEDS: Lisinopril 5 MG Tab PO SCH (08:00)
[2018-01-20] MEDS: Potassium Chloride 10% 20 MEQ/15 ML Soln 30 ML UD Cup PO SCH (08:01)
[2018-01-20] MEDS: predniSONE 10 MG Tab PO SCH (08:01)
[2018-01-20] MEDS ORDERED: Potassium Chloride 20 MEQ Tab.ER PO ONE (08:47)
[2018-01-20] MEDS: Loperamide 2 MG Cap PO PRN (09:23)
--- NOTE | 2018-01-20 13:58 | PCM.PN ---
- General Info Date of Service: 01/20/18 Admission Dx/Problem (Free Text): Admission Diagnosis/Problem Admission Diagnosis/Problem generalized weakness , hyponatriemia Subjective Update: Patient feeling better today , family wants her discharged back to [facility] to continue physical therapy as she is still very weak and blind. Bed not available today , discharge on hold. Sodium today is 131. Diarrhea resolved , as per nurse she gets diarrhea with oral K Had appointment with the cell tender helper at [facility] in [place] and could not go , appointment needed rescheduling Functional Status: Reports: Pain Controlled - Review of Systems General: Reports: No Symptoms HEENT: Reports: Other (eye blindness) Pulmonary: Reports: No Symptoms Cardiovascular: Reports: No Symptoms Gastrointestinal: Reports: No Symptoms Genitourinary: Reports: No Symptoms Musculoskeletal: Reports: No Symptoms Skin: Reports: No Symptoms Neurological: Reports: No Symptoms Psychiatric: Reports: No Symptoms - Patient Data Vitals - Most Recent: Last Vital Signs Temp 97.2 F 01/20/18 12:00 Pulse 66 01/20/18 12:00 Resp 14 01/20/18 12:00 BP 153/59 H 01/20/18 12:00 Pulse Ox 93 L 01/20/18 12:00 Weight - Most Recent: 109 lb 12.643 oz I&O - Last 24 Hours: Intake & Output 01/19/18 01/20/18 01/20/18 22:59 06:59 14:59 Intake Total 781 1330 1648 Output Total 250 1200 1450 Balance 531 130 198 Lab Results Last 24 Hours: Laboratory Results - last 24 hr 01/17/18 01/20/18 01/20/18 Range/Units 23:40 04:28 04:28 WBC 16.06 H (4.0-11.0) K/uL RBC 4.59 (4.30-5.90) M/uL Hgb 12.6 (12.0-16.0) g/dL Hct 36.2 (36.0-46.0) % MCV 78.9 L (80.0-98.0) fL MCH 27.5 (27.0-32.0) pg MCHC 34.8 (31.0-37.0) g/dL RDW Std Deviation 42.2 (28.0-62.0) fl RDW Coeff of Rhianna 15 (11.0-15.0) % Plt Count 394 (150-400) K/uL MPV 10.70 (7.40-12.00) fL Neut % (Auto) 78.2 (48.0-80.0) % Lymph % (Auto) 12.7 L (16.0-40.0) % [place] % (Auto) 8.6 (0.0-15.0) % Eos % (Auto) 0.4 (0.0-7.0) % Baso % (Auto) 0.1 (0.0-1.5) % Neut # (Auto) 12.6 H (1.4-5.7) K/uL Lymph # (Auto) 2.0 (0.6-2.4) K/uL [place] # (Auto) 1.4 H (0.0-0.8) K/uL Eos # (Auto) 0.1 (0.0-0.7) K/uL Baso # (Auto) 0.0 (0.0-0.1) K/uL Nucleated RBC % 0.0 /100WBC Nucleated RBCs # 0 K/uL ESR (0-29) mm/hr Sodium 131 L (136-145) mmol/L Potassium 3.5 (3.5-5.1) mmol/L Chloride 99 (98-107) mmol/L Carbon Dioxide 25.8 (21.0-32.0) mmol/L BUN 7 (7.0-18.0) mg/dL Creatinine 0.6 (0.6-1.0) mg/dL Est Cr Clr Drug Dosing 55.49 mL/min Estimated GFR (MDRD) > 60.0 ml/min Glucose 85 (74-106) mg/dL Calcium 8.0 L (8.5-10.1) mg/dL Magnesium 1.8 (1.5-2.0) mg/dL Total Bilirubin 0.3 (0.2-1.0) mg/dL AST 13 L (15-37) IU/L ALT 12 L (14-63) IU/L Alkaline Phosphatase 76 (46-116) U/L Total Protein 4.9 L (6.4-8.2) g/dL Albumin 2.6 L (3.4-5.0) g/dL Globulin 2.3 (2.0-3.5) g/dL Albumin/Globulin Ratio 1.1 L (1.3-2.8) Urine Osmolality 419 (300-900) mosm/kg 01/20/18 Range/Units 04:28 WBC (4.0-11.0) K/uL RBC (4.30-5.90) M/uL Hgb (12.0-16.0) g/dL Hct (36.0-46.0) % MCV (80.0-98.0) fL MCH (27.0-32.0) pg MCHC (31.0-37.0) g/dL RDW Std Deviation (28.0-62.0) fl RDW Coeff of Rhianna (11.0-15.0) % Plt Count (150-400) K/uL MPV (7.40-12.00) fL Neut % (Auto) (48.0-80.0) % Lymph % (Auto) (16.0-40.0) % [place] % (Auto) (0.0-15.0) % Eos % (Auto) (0.0-7.0) % Baso % (Auto) (0.0-1.5) % Neut # (Auto) (1.4-5.7) K/uL Lymph # (Auto) (0.6-2.4) K/uL [place] # (Auto) (0.0-0.8) K/uL Eos # (Auto) (0.0-0.7) K/uL Baso # (Auto) (0.0-0.1) K/uL Nucleated RBC % /100WBC Nucleated RBCs # K/uL ESR 2 (0-29) mm/hr Sodium (136-145) mmol/L Potassium (3.5-5.1) mmol/L Chloride (98-107) mmol/L Carbon Dioxide (21.0-32.0) mmol/L BUN (7.0-18.0) mg/dL Creatinine (0.6-1.0) mg/dL Est Cr Clr Drug Dosing mL/min Estimated GFR (MDRD) ml/min Glucose (74-106) mg/dL Calcium (8.5-10.1) mg/dL Magnesium (1.5-2.0) mg/dL Total Bilirubin (0.2-1.0) mg/dL AST (15-37) IU/L ALT (14-63) IU/L Alkaline Phosphatase (46-116) U/L Total Protein (6.4-8.2) g/dL Albumin (3.4-5.0) g/dL Globulin (2.0-3.5) g/dL Albumin/Globulin Ratio (1.3-2.8) Urine Osmolality (300-900) mosm/kg Juan Results Last 24 Hours: Microbiology 01/17/18 20:40 Aerobic Blood Culture - Preliminary Blood - Venous - Lab Draw NO GROWTH AFTER 2 DAYS Anaerobic Blood Culture - Preliminary NO GROWTH AFTER 2 DAYS 01/17/18 20:30 Aerobic Blood Culture - Preliminary Blood - Venous NO GROWTH AFTER 2 DAYS Anaerobic Blood Culture - Preliminary NO GROWTH AFTER 2 DAYS Med Orders - Current: Current Medications Albuterol/Ipratropium (Duoneb 3.0-0.5 Mg/3 Ml) 3 ml NEB Q4HRRT PRN PRN Reason: Shortness Of Breath/wheezing Amlodipine Besylate (Norvasc) 10 mg PO DAILY [facility] Last Admin: 01/20/18 08:00 Dose: 10 mg Bismuth Subsalicylate (Pepto Bismol) 30 ml PO Q1H PRN PRN Reason: Diarrhea Last Admin: 01/19/18 08:25 Dose: 30 ml Enoxaparin Sodium (Lovenox) 40 mg SUBCUT Q24H [facility] Last Admin: 01/19/18 21:01 Dose: 40 mg Sodium Chloride (Normal Saline) 1,000 mls @ 100 mls/hr IV ASDIRECTED [facility] Last Admin: 01/19/18 19:26 Dose: 100 mls/hr Lisinopril (Prinivil) 5 mg PO DAILY [facility] Last Admin: 01/20/18 08:00 Dose: 5 mg Loperamide HCl (Imodium) 2 mg PO Q6H PRN PRN Reason: Diarrhea Last Admin: 01/20/18 09:23 Dose: 2 mg Ondansetron HCl (Zofran) 4 mg IVPUSH Q4H PRN PRN Reason: Nausea Oxycodone HCl (Oxycodone) 5 mg PO Q4H PRN PRN Reason: Pain (moderate 4-6) Potassium Chloride (Potassium Chloride) 40 meq PO DAILY [facility] Last Admin: 01/20/18 08:01 Dose: 40 meq Prednisone (Prednisone) 50 mg PO DAILY [facility] Last Admin: 01/20/18 08:01 Dose: 50 mg Sodium Chloride (Saline Flush) 10 ml FLUSH ASDIRECTED PRN PRN Reason: Keep Vein Open Sodium Chloride (Saline Flush) 2.5 ml FLUSH ASDIRECTED PRN PRN Reason: Keep Vein Open Sodium Chloride (Sodium Chloride) 1 gm PO QID [facility] Last Admin: 01/20/18 11:55 Dose: 1 gm Discontinued Medications Hydralazine HCl (Apresoline) 25 mg PO ONETIME ONE Stop: 01/20/18 03:52 Last Admin: 01/20/18 03:56 Dose: 25 mg Potassium Chloride/Sodium Chloride (Normal Saline With 40 Meq Kcl) 250 mls @ 60 mls/hr IV ASDIRECTED [facility] Last Admin: 01/17/18 23:05 Dose: 60 mls/hr Azithromycin 500 mg/ Sodium (Chloride) 250 mls @ 250 mls/hr IV Q24H [facility] Last Admin: 01/18/18 00:35 Dose: 250 mls/hr Ceftriaxone Sodium/Dextrose 1 (gm/ Premix) 50 mls @ 100 mls/hr IV Q24H [facility] Last Admin: 01/17/18 23:56 Dose: 100 mls/hr Sodium Chloride (Normal Saline) 1,000 mls @ 50 mls/hr IV ASDIRECTED [facility] Last Admin: 01/18/18 03:54 Dose: 50 mls/hr Ciprofloxacin/Dextrose 400 mg/ (Premix) 200 mls @ 200 mls/hr IV Q12H [facility] Last Admin: 01/18/18 10:14 Dose: 200 mls/hr Metronidazole 500 mg/ Premix 100 mls @ 100 mls/hr IV QID [facility] Last Admin: 01/19/18 17:20 Dose: 100 mls/hr Levofloxacin/Dextrose 750 mg/ (Premix) 150 mls @ 100 mls/hr IV Q24H [facility] Last Admin: 01/18/18 21:18 Dose: 100 mls/hr Loperamide HCl (Imodium) 4 mg PO ONETIME ONE Stop: 01/19/18 09:13 Last Admin: 01/19/18 09:18 Dose: 4 mg Morphine Sulfate (Morphine) 2 mg IVPUSH Q2H PRN PRN Reason: Pain (severe 7-10) Stop: 01/18/18 20:14 Potassium Chloride (Klor-Con M20) 40 meq PO DAILY [facility] Last Admin: 01/17/18 22:41 Dose: Not Given Potassium Chloride (Klor-Con M20) 40 meq PO ONETIME ONE Stop: 01/18/18 02:01 Last Admin: 01/18/18 02:07 Dose: Not Given Potassium Chloride (Potassium Chloride) Confirm Administered Dose 40 meq .ROUTE .STK-MED ONE Stop: 01/17/18 22:11 Last Admin: 01/17/18 22:40 Dose: 40 meq Potassium Chloride (Klor-Con M20) 40 meq PO ONETIME ONE Stop: 01/20/18 08:48 Last Admin: 01/20/18 09:21 Dose: Not Given - Exam General: Alert, Oriented HEENT: Pupils Equal, Pupils Reactive, Other (eye blindness) Neck: Supple, Trachea Midline, No JVD, No Thyromegaly Lungs: Clear to Auscultation, Normal Respiratory Effort Cardiovascular: Regular Rate, Regular Rhythm, No Murmurs GI/Abdominal Exam: Normal Bowel Sounds, Soft, Non-Tender, No Organomegaly, No Distention, No Abnormal Bruit, No Mass Back Exam: Normal Inspection Extremities: Normal Inspection Skin: Warm, Dry, Intact Neurological: No New Focal Deficit Psy/Mental Status: Alert, Normal Affect - Problem List & Annotations (1) Hyponatremia SNOMED Code(s): 81526286 Code(s): E87.1 - HYPO-OSMOLALITY AND HYPONATREMIA Status: Acute Current Visit: Yes (2) Diarrhea SNOMED Code(s): 67368890 Code(s): R19.7 - DIARRHEA, UNSPECIFIED Status: Acute Current Visit: Yes Qualifiers: Diarrhea type: functional diarrhea Qualified Code(s): K59.1 - Functional diarrhea (3) Vision decreased SNOMED Code(s): 128939390 Code(s): H54.7 - UNSPECIFIED VISUAL LOSS Status: Acute Current Visit: Yes - Problem List Review Problem List Initiated/Reviewed/Updated: Yes - My Orders Last 24 Hours: My Active Orders 01/19/18 21:00 Lisinopril [Prinivil] 5 mg PO DAILY 01/20/18 00:00 Sodium Chloride 1 gm PO QID 01/20/18 09:11 Loperamide [Imodium] 2 mg PO Q6H PRN 01/21/18 05:11 CBC WITH AUTO DIFF [HEME] AM COMPREHENSIVE METABOLIC PN,CMP [CHEM] AM 01/22/18 05:11 CBC WITH AUTO DIFF [HEME] AM COMPREHENSIVE METABOLIC PN,CMP [CHEM] AM - Plan Plan:: CXR:nad ASSESSMENT AND PLAN 1) hyponatremia- resolved - continue sodium chloride 1 g tablets 4 times a day, water restriction to 800 mL by mouth daily 2)diarrhea- noninfectious- stool culture and stool for WBC and stool for C. difficile negative, on Imodium prn 3) leucocytosis-secondary to steroid use hypertension u/c - probable a component of the uncontrolled BP is the fact she was recently started high dose of prednisone due to the presumption she might have temporal arteritis. Patient does not complain of headache.ESR 2. Unlikely temporal arteritis. Continue amlodipine 10 mg po daily , lisinopril 5 mg po daily , f/up BP, add spironolactone 25 mg po daily ( added to help with blood potassium level, as patient has diarrhea with KCL po ) 4)vomiting-RESOLVED 5) generalized weakness -improving, PT f/up 6)hypokaliemia -RESOLVED eye problems : continue prednisone 50 mg po daily , f/up cell tender helper Dvt prof :MARLO sq)
[2018-01-20] MEDS: Sodium Chloride 0.9% 1,000 ML IV SCH (15:33)
[2018-01-20] MEDS: Enoxaparin 40 MG/0.4 ML Syringe SUBCUT SCH (21:11)
[2018-01-20] MEDS: Spironolactone 25 MG Tab PO SCH (21:11)
[2018-01-21] MEDS: Sodium Chloride 0.9% 1,000 ML IV SCH ×2 (01:29→11:35)
[2018-01-21] MEDS: Sodium Chloride 1 GM Tab PO SCH ×2 (05:24→11:10)
[2018-01-21 05:43] LABS: CHLORIDE,CL 101 mmol/L (98-107); SODIUM,NA 134 mmol/L (136-145)
[2018-01-21] MEDS: Potassium Chloride 10% 20 MEQ/15 ML Soln 30 ML UD Cup PO SCH (08:39)
[2018-01-21] MEDS: predniSONE 10 MG Tab PO SCH (08:39)
[2018-01-21] MEDS: Spironolactone 25 MG Tab PO SCH (08:40)
[2018-01-21] MEDS: Lisinopril 5 MG Tab PO SCH (08:40)
[2018-01-21] MEDS: amLODIPine 5 MG Tab PO SCH (08:40)
[2018-01-21] MEDS: Loperamide 2 MG Cap PO PRN (08:51)
[2018-01-21] MEDS ORDERED: Lisinopril 10 MG Tab PO ONE (13:13)
[2018-01-21] MEDS ORDERED: Lisinopril 10 MG Tab PO SCH (13:15)
--- NOTE | 2018-01-21 13:27 | PCM.DCSUM1 ---
Discharge Summary - Hospital Course Free Text/Narrative:: Patient 82 y old admitted in the hospital with diarrhea nausea and vomiting and hyponatriemia at 114 , was treated in ICU by e ICU attending with water restriction at 800 cc and iv NS . Patient Na slowly improved and she was downgraded from ICU. Initially she received Rocephine 1 gram and [id number] mg for possible pneumonia , but CXR done here showed no pneumonia , later was changed to levofloxacin and metronidazole which were d/c , too once we received the culture results negative She had diarrhea and leucocytosis and the stool culture and stool gram stain , blood culture , stool for WBC , stool for c diff were negative. As per her granddaughter who is taking care of her she had diarrhea on and off in the past. Recommend avoid the raw vegetables , milk products , avoid row fruits until her symptoms resolve. Eat banana , rice , toast , apple sauce. Patient was treated for diarrhea with imodium prn. Her diarrhea stopped and sodium level improved and she was ready for discharge yesterday but no swing bed available. Patient is blind , she is currently on prednisone for presumable temporal arteritis and was supposed to be scheduled for biopsy of the temporal artery as per her granddaughter.ESR done in hospital did not show inflamation , characteristic to temporal arteritis. She had appointment with remelt pan tank operator at [facility] in [place] yesterday but she couldnt go because she could not be discharged from hospital . Discuss with the Nurse in charge Gina and she will try to reschedule her appointment. For hyponatriemia patient was given f/up appointment with nephrology. Recommend f/up Na level ,f/up K level with PCP in 3 days . Her BP was not well controlled and she was started on amlodipine 10 mg po daily and lisinopril 10 mg po daily , clonidine 0.1mg po TID prn for SBP more than 160 , hold if HR less than 60. HPI Initial Comments: Patient is 82 y old female who presented to hospital due to generalized weakness and occasional confusion for the past week , history as per my discussion with her granddaughter. At the moment I have seen the patient she was hard of hearing and very weak and could not provide detailed history. As per granddaughter she had only one episode of diarrhea and vomiting and this was in ER at [facility] . She took her grandmother to hospital due to general weakness/ lethargy and at [facility] she was found to have sodium level of 114 mg/dl.Was seen in the hospital in [place] for a episode of eye problems and was given treated with prednisone 50 mg po daily and suppopsed to have temporal artery biopsy to rule out temporal arteritis . She has decreased vision and is almost blind . - Discharge Data Discharge Date: 01/21/18 Discharge Disposition: DC/Tfer to 03 Condition: Good - Discharge Diagnosis/Problem(s) (1) Hyponatremia SNOMED Code(s): 62007320 ICD Code: E87.1 - HYPO-OSMOLALITY AND HYPONATREMIA Status: Acute Current Visit: Yes (2) Diarrhea SNOMED Code(s): 36414865 ICD Code: R19.7 - DIARRHEA, UNSPECIFIED Status: Acute Current Visit: Yes Qualifiers: Diarrhea type: functional diarrhea Qualified Code(s): K59.1 - Functional diarrhea (3) Vision decreased SNOMED Code(s): 218502208 ICD Code: H54.7 - UNSPECIFIED VISUAL LOSS Status: Acute Current Visit: Yes - Patient Summary/Data Consults: Consultations 01/17/18 20:10 PT Evaluation and Treatment [CONS] Routine - Discharge Plan Prescriptions/Med Rec: amLODIPine [Norvasc] 10 mg PO DAILY #30 tablet cloNIDine [Catapres] 0.1 mg PO Q8H PRN 30 Days #90 tab PRN Reason: Hypertension Lisinopril [Prinivil] 10 mg PO DAILY #30 tab Loperamide [Imodium] 2 mg PO Q6H PRN #30 cap PRN Reason: Diarrhea oxyCODONE 5 mg PO Q4H PRN #20 tablet PRN Reason: Pain (Moderate 4-6) Potassium Chloride 40 meq PO DAILY #10 cup Sodium Chloride 1 gm PO QID #30 tablet Home Medications: Home Meds Escitalopram [Lexapro] 10 mg PO DAILY 01/18/18 [History] predniSONE [Prednisone] 50 mg PO DAILY 01/18/18 [History] Lisinopril [Prinivil] 10 mg PO DAILY #30 tab 01/21/18 [Rx] Loperamide [Imodium] 2 mg PO Q6H PRN #30 cap 01/21/18 [Rx] Potassium Chloride 40 meq PO DAILY #10 cup 01/21/18 [Rx] Sodium Chloride 1 gm PO QID #30 tablet 01/21/18 [Rx] amLODIPine [Norvasc] 10 mg PO DAILY #30 tablet 01/21/18 [Rx] cloNIDine [Catapres] 0.1 mg PO Q8H PRN 30 Days #90 tab 01/21/18 [Rx] oxyCODONE 5 mg PO Q4H PRN #20 tablet 01/21/18 [Rx] Patient Handouts: Hyponatremia, [id number], Hyponatremia Referrals: PCP,Unknown [Ordering Only Provider] - Gerry Loyola MD [Physician] - - Review of Systems General: Reports: No Symptoms HEENT: Reports: Other (eye blindness) Pulmonary: Reports: No Symptoms Cardiovascular: Reports: No Symptoms Gastrointestinal: Reports: No Symptoms Genitourinary: Reports: No Symptoms Musculoskeletal: Reports: No Symptoms Skin: Reports: No Symptoms Neurological: Reports: No Symptoms Psychiatric: Reports: No Symptoms - Patient Data Vitals - Most Recent: Last Vital Signs Temp 98.2 F 01/21/18 11:53 Pulse 68 01/21/18 11:53 Resp 16 01/21/18 11:53 BP 186/80 H 01/21/18 11:53 Pulse Ox 97 01/21/18 11:53 Weight - Most Recent: 112 lb 6.4 oz I&O - Last 24 hours: Intake & Output 01/20/18 01/21/18 01/21/18 22:59 06:59 14:59 Intake Total 1468 Output Total 900 Balance 568 Lab Results - Last 24 hrs: Laboratory Results - last 24 hr 01/21/18 01/21/18 Range/Units 04:33 04:33 WBC 17.07 H (4.0-11.0) K/uL RBC 4.52 (4.30-5.90) M/uL Hgb 12.3 (12.0-16.0) g/dL Hct 35.9 L (36.0-46.0) % MCV 79.4 L (80.0-98.0) fL MCH 27.2 (27.0-32.0) pg MCHC 34.3 (31.0-37.0) g/dL RDW Std Deviation 43.2 (28.0-62.0) fl RDW Coeff of Rhianna 15 (11.0-15.0) % Plt Count 393 (150-400) K/uL MPV 10.80 (7.40-12.00) fL Neut % (Auto) 77.6 (48.0-80.0) % Lymph % (Auto) 15.1 L (16.0-40.0) % [place] % (Auto) 6.9 (0.0-15.0) % Eos % (Auto) 0.3 (0.0-7.0) % Baso % (Auto) 0.1 (0.0-1.5) % Neut # (Auto) 13.3 H (1.4-5.7) K/uL Lymph # (Auto) 2.6 H (0.6-2.4) K/uL [place] # (Auto) 1.2 H (0.0-0.8) K/uL Eos # (Auto) 0.1 (0.0-0.7) K/uL Baso # (Auto) 0.0 (0.0-0.1) K/uL Nucleated RBC % 0.0 /100WBC Nucleated RBCs # 0 K/uL Sodium 134 L (136-145) mmol/L Potassium 3.6 (3.5-5.1) mmol/L Chloride 101 (98-107) mmol/L Carbon Dioxide 27.4 (21.0-32.0) mmol/L BUN 6 L (7.0-18.0) mg/dL Creatinine 0.6 (0.6-1.0) mg/dL Est Cr Clr Drug Dosing 55.49 mL/min Estimated GFR (MDRD) > 60.0 ml/min Glucose 80 (74-106) mg/dL Calcium 8.2 L (8.5-10.1) mg/dL Total Bilirubin 0.3 (0.2-1.0) mg/dL AST 5 L (15-37) IU/L ALT 13 L (14-63) IU/L Alkaline Phosphatase 72 (46-116) U/L Total Protein 4.9 L (6.4-8.2) g/dL Albumin 2.5 L (3.4-5.0) g/dL Globulin 2.4 (2.0-3.5) g/dL Albumin/Globulin Ratio 1.0 L (1.3-2.8) ROX Results - Last 24 hrs: Microbiology 01/17/18 20:40 Aerobic Blood Culture - Preliminary Blood - Venous - Lab Draw NO GROWTH AFTER 3 DAYS Anaerobic Blood Culture - Preliminary NO GROWTH AFTER 3 DAYS 01/17/18 20:30 Aerobic Blood Culture - Preliminary Blood - Venous NO GROWTH AFTER 3 DAYS Anaerobic Blood Culture - Preliminary NO GROWTH AFTER 3 DAYS Med Orders - Current: Current Medications Albuterol/Ipratropium (Duoneb 3.0-0.5 Mg/3 Ml) 3 ml NEB Q4HRRT PRN PRN Reason: Shortness Of Breath/wheezing Amlodipine Besylate (Norvasc) 10 mg PO DAILY [facility] Last Admin: 01/21/18 08:40 Dose: 10 mg Bismuth Subsalicylate (Pepto Bismol) 30 ml PO Q1H PRN PRN Reason: Diarrhea Last Admin: 01/19/18 08:25 Dose: 30 ml Enoxaparin Sodium (Lovenox) 40 mg SUBCUT Q24H [facility] Last Admin: 01/20/18 21:11 Dose: 40 mg Sodium Chloride (Normal Saline) 1,000 mls @ 100 mls/hr IV ASDIRECTED [facility] Last Admin: 01/21/18 11:35 Dose: 100 mls/hr Lisinopril (Prinivil) 5 mg PO DAILY [facility] Last Admin: 01/21/18 08:40 Dose: 5 mg Loperamide HCl (Imodium) 2 mg PO Q6H PRN PRN Reason: Diarrhea Last Admin: 01/21/18 08:51 Dose: 2 mg Ondansetron HCl (Zofran) 4 mg IVPUSH Q4H PRN PRN Reason: Nausea Oxycodone HCl (Oxycodone) 5 mg PO Q4H PRN PRN Reason: Pain (moderate 4-6) Potassium Chloride (Potassium Chloride) 40 meq PO DAILY [facility] Last Admin: 01/21/18 08:39 Dose: 40 meq Potassium Chloride (Potassium Chloride) 40 meq PO ONETIME ONE Stop: 01/21/18 14:01 Prednisone (Prednisone) 50 mg PO DAILY [facility] Last Admin: 01/21/18 08:39 Dose: 50 mg Sodium Chloride (Saline Flush) 10 ml FLUSH ASDIRECTED PRN PRN Reason: Keep Vein Open Sodium Chloride (Saline Flush) 2.5 ml FLUSH ASDIRECTED PRN PRN Reason: Keep Vein Open Sodium Chloride (Sodium Chloride) 1 gm PO QID [facility] Last Admin: 01/21/18 11:10 Dose: 1 gm Spironolactone (Aldactone) 25 mg PO DAILY [facility] Last Admin: 01/21/18 08:40 Dose: 25 mg Discontinued Medications Hydralazine HCl (Apresoline) 25 mg PO ONETIME ONE Stop: 01/20/18 03:52 Last Admin: 01/20/18 03:56 Dose: 25 mg Potassium Chloride/Sodium Chloride (Normal Saline With 40 Meq Kcl) 250 mls @ 60 mls/hr IV ASDIRECTED [facility] Last Admin: 01/17/18 23:05 Dose: 60 mls/hr Azithromycin 500 mg/ Sodium (Chloride) 250 mls @ 250 mls/hr IV Q24H [facility] Last Admin: 01/18/18 00:35 Dose: 250 mls/hr Ceftriaxone Sodium/Dextrose 1 (gm/ Premix) 50 mls @ 100 mls/hr IV Q24H [facility] Last Admin: 01/17/18 23:56 Dose: 100 mls/hr Sodium Chloride (Normal Saline) 1,000 mls @ 50 mls/hr IV ASDIRECTED [facility] Last Admin: 01/18/18 03:54 Dose: 50 mls/hr Ciprofloxacin/Dextrose 400 mg/ (Premix) 200 mls @ 200 mls/hr IV Q12H [facility] Last Admin: 01/18/18 10:14 Dose: 200 mls/hr Metronidazole 500 mg/ Premix 100 mls @ 100 mls/hr IV QID [facility] Last Admin: 01/19/18 17:20 Dose: 100 mls/hr Levofloxacin/Dextrose 750 mg/ (Premix) 150 mls @ 100 mls/hr IV Q24H [facility] Last Admin: 01/18/18 21:18 Dose: 100 mls/hr Lisinopril (Prinivil) 10 mg PO DAILY [facility] Lisinopril (Prinivil) 10 mg PO ONETIME ONE Stop: 01/21/18 13:14 Loperamide HCl (Imodium) 4 mg PO ONETIME ONE Stop: 01/19/18 09:13 Last Admin: 01/19/18 09:18 Dose: 4 mg Morphine Sulfate (Morphine) 2 mg IVPUSH Q2H PRN PRN Reason: Pain (severe 7-10) Stop: 01/18/18 20:14 Potassium Chloride (Klor-Con M20) 40 meq PO DAILY CORNELIO Last Admin: 01/17/18 22:41 Dose: Not Given Potassium Chloride (Klor-Con M20) 40 meq PO ONETIME ONE Stop: 01/18/18 02:01 Last Admin: 01/18/18 02:07 Dose: Not Given Potassium Chloride (Potassium Chloride) Confirm Administered Dose 40 meq .ROUTE .STK-MED ONE Stop: 01/17/18 22:11 Last Admin: 01/17/18 22:40 Dose: 40 meq Potassium Chloride (Klor-Con M20) 40 meq PO ONETIME ONE Stop: 01/20/18 08:48 Last Admin: 01/20/18 09:21 Dose: Not Given - Exam General: Reports: Alert, Oriented HEENT: Reports: Pupils Equal Neck: Reports: Supple, Trachea Midline, No JVD, No Thyromegaly Lungs: Reports: Clear to Auscultation, Normal Respiratory Effort Cardiovascular: Reports: Regular Rate, Regular Rhythm, No Murmurs GI/Abdominal Exam: Normal Bowel Sounds, Soft, Non-Tender, No Organomegaly, No Distention Back Exam: Reports: Normal Inspection Extremities: Normal Inspection Skin: Reports: Warm, Dry, Intact Neurological: Reports: No New Focal Deficit Psy/Mental Status: Reports: Alert, Normal Affect
[2018-01-21] MEDS ORDERED: Potassium Chloride 10% 20 MEQ/15 ML Soln 30 ML UD Cup PO ONE (14:00)
== END 2018-01-21 14:45 | DRG 641 ==
LOC: MW.ICU 20:02 → MW.MS 01-20 14:22
PROVIDERS: ADMIT Internal Medicine; ATTEND Internal Medicine
DX: E87.1 Hypo-osmolality and hyponatremia (principal); K59.1 Functional diarrhea; H54.7 Unspecified visual loss; M31.6 Other giant cell arteritis; H91.90 Unspecified hearing loss, unspecified ear; R53.1 Weakness; D72.829 Elevated white blood cell count, unspecified; R11.10 Vomiting, unspecified
CPT/HCPCS: 36415; 71045; 71045-26; 80048; 80053; 81001; 82272; 83605; 83630; 83735; 83935; 84300; 85025; 85027; 85652; 87040; 87046; 87324; 87899; 97161-GP; A9270-GY; J0456; J0696; J0744; J1650; J1956; J3480; J7040; J7050